=== PATIENT | female | born 1995 | race Asian ===

== ENCOUNTER → 2017-05-24 07:37 | Emergency (ER) | payer SELFPAY ==
[~2017-05-24 07:37] MED LIST: Famotidine IV* 10 MG/ML 2 ML (20 mg) IV ONE; NS 0.9% 1000 ML* 2,000 ML IV ONE; Ondansetron INJ* 2 MG/ML VIAL IV ONE
[2017-05-24 08:22] LABS: Hematocrit 43 % (35-47); Hemoglobin 14.6 g/dl (12.0-16.0); Mean Corpuscular HGB Conc 34 g/dl (31-36); Mean Corpuscular Hemoglobin 30 pg (27-31); Mean Corpuscular Volume 87 fL (80-97); Mean Platelet Volume 10 um3 (7.4-10.4); Red Blood Count 4.94 10^6/ul (4.0-5.4); Red Cell Distribution Width 12 % (10.5-15); White Blood Count 13.2 10^3/ul (3.5-10.8)
[2017-05-24 08:40] LABS: ALT 17 U/L (7-52); AST 16 U/L (13-39); Albumin 4.7 g/dL (3.2-5.2); Alkaline Phosphatase 60 U/L (34-104); Anion Gap 11 mmol/L (2-11); BUN/Creatinine Ratio 16.9 (8-20); Blood Urea Nitrogen 12 mg/dL (6-24); C Reactive Protein < 1.00 mg/L (< 5.00); CO2 Carbon Dioxide 22 mmol/L (22-32); Calcium 9.9 mg/dL (8.6-10.3); Chloride 103 mmol/L (101-111); EGFR African American 131.2 (>60); Globulin 3.2 g/dL (2-4); Glucose 132 mg/dL (70-100); Lipase 10 U/L (11.0-82.0); Potassium 3.6 mmol/L (3.5-5.0); Sodium 136 mmol/L (133-145); Total Protein 7.9 g/dL (6.4-8.9)
--- NOTE | 2017-05-24 08:59 | RAD ---
Indication: Abdominal pain. Flat and upright views of the abdomen demonstrates no free air. No dilated loops of bowel are noted. The colon is filled with stool. IMPRESSION: No free air or obstruction is noted.
[2017-05-24 09:43] LABS: Urine Bilirubin Negative (Negative); Urine Glucose Negative (Negative); Urine Nitrite Negative (Negative)
[2017-05-24 11:23] VITALS: BP 117/79
--- NOTE | 2017-05-25 07:41 | ED ---
Skip Mandel Angela, scribed for Bonilla Felix MD on 05/24/17 at 0756 . Abdominal Pain/Female - HPI Summary HPI Summary: This pt is a 22 y/o female accompanied by her significant other presenting to [facility] c/o diffuse abd pain associated with nausea, vomiting, and diarrhea since 0 yesterday. Pt notes that she ate fried rice yesterday, but states it was new. For the last 5 hours pt has been vomiting bile. There are no aggravating or alleviating factors. LMP: 1 week ago. She denies any PMHx. - History of Current Complaint Chief Complaint: EDNauseaVomitDiarrh Stated Complaint: VOMITING/ABD PAIN Hx Obtained From: Patient Hx Last Menstrual Period: nexplanon Onset/Duration: Sudden Onset, Lasting Hours, Still Present Timing: Hours Severity Currently: Severe Pain Intensity: 8 Pain Scale Used: 0-10 Numeric Location: Diffuse Radiates: No Aggravating Factor(s): Nothing Alleviating Factor(s): Nothing Associated Signs and Symptoms: Positive: Nausea, Vomiting, Diarrhea Allergies/Adverse Reactions: Allergies Allergy/AdvReac Type Severity Reaction Status Date / Time Shellfish Allergy Allergy Hives Verified 12/05/15 12:10 PMH/Surg Hx/FS Hx/Imm Hx Endocrine/Hematology History: Denies: Hx Diabetes, Hx Thyroid Disease Cardiovascular History: Denies: Hx Hypertension Respiratory History: Denies: Hx Asthma, Hx Chronic Obstructive Pulmonary Disease (COPD) GI History: Denies: Hx Ulcer Infectious Disease History: No Infectious Disease History: Denies: Hx Hepatitis, Hx Human Immunodeficiency Virus (HIV), Traveled Outside the US in Last 30 Days - Family History Known Family History: Negative: Cardiac Disease, Hypertension, Diabetes - Social History Alcohol Use: Occasionally Substance Use Type: Reports: Marijuana Substance Use Comment - Amount & Last Used: once a month Smoking Status (MU): Never Smoked Tobacco Review of Systems Negative: Fever, Chills Eyes: Negative ENT: Negative Cardiovascular: Negative Positive: Abdominal Pain, Vomiting, Diarrhea, Nausea Genitourinary: Negative Musculoskeletal: Negative Skin: Negative Neurological: Negative All Other Systems Reviewed And Are Negative: Yes Physical Exam - Summary Physical Exam Summary: VITAL SIGNS: Reviewed. GENERAL: Patient is a well-developed and nourished female who is lying comfortable in the stretcher. Patient is not in any acute respiratory distress. Dry heaving. HEAD AND FACE: Normocephalic and atraumatic. EYES: PERRLA, EOMI x 2, No injected conjunctiva. EARS: Hearing grossly intact. Ear canals and tympanic membranes are WNL. MOUTH: Oropharynx within normal limits. NECK: Supple, trachea is midline, no adenopathy, no JVD. CHEST: Symmetric, no tenderness at palpation LUNGS: Clear to auscultation bilaterally. No wheezing or crackles. CVS: RRR, S1 and S2 present, no murmurs or gallops appreciated. ABDOMEN: Soft. Diffuse abd tenderness. No signs of distention. Positive bowel sounds. No rebound no guarding, and no masses palpated. No abdominal bruit or pulsations. EXTREMITIES: FROM in all major joints, no edema, no cyanosis or clubbing. NEURO: Alert and oriented x 3. No acute neurological deficits. Speech is normal. SKIN: Dry and warm Triage Information Reviewed: Yes Vital Signs On Initial Exam: Initial Vitals Temp Pulse Resp BP Pulse Ox 97.2 F 83 16 130/71 100 05/24/17 07:40 05/24/17 07:40 05/24/17 07:40 05/24/17 07:40 05/24/17 07:40 Vital Signs Reviewed: Yes Diagnostics - Vital Signs Vital Signs Temp Pulse Resp BP Pulse Ox 05/24/17 07:40 97.2 F 83 16 130/71 100 - Laboratory Result Diagrams: 05/24/17 08:09 05/24/17 08:09 Lab Statement: Any lab studies that have been ordered have been reviewed, and results considered in the medical decision making process. - Radiology Abdomen XR Xray Interpretation: No Acute Changes - IMPRESSION: No free air or obstruction is noted. ED physician has reviewed this radiology report and agrees. Radiology Interpretation Completed By: Radiologist Re-Evaluation - Re-Evaluation First Eval Re-Evaluation Time: 10:30 Comment: I reviewed the abd XR with the pt. Abdominal Pain Fem Course/Dx - Course Course Of Treatment: This pt is a 22 y/o female accompanied by her significant other presenting to [facility] c/o diffuse abd pain associated with nausea, vomiting , and diarrhea since 2200 yesterday. Pt notes that she ate fried rice yesterday , but states it was new. For the last 5 hours pt has been vomiting bile. There are no aggravating or alleviating factors. LMP: 1 week ago. She denies any PMHx. Test results show WBC of 13.2, glucose of 132, urinalysis is negative for UTI. Initially the pt was given IV fluids, Zofran for the nausea and vomiting, and her symptoms improved. The pt had multiple re-examinations of the abdomen and has no abdominal pain. Therefore, since the symptoms have improved and pt has no abnormalities, I believe she does not need an abdominal CT at this time. Pt is tolerating PO without nausea and vomiting. She will be discharged home with follow up from her PCP. Pt is hemodynamically stable, alert and oriented x3. - Diagnoses Provider Diagnoses: Nausea, vomiting and diarrhea Discharge - Discharge Plan Condition: Stable Disposition: HOME Patient Education Materials: Acute Nausea and Vomiting (ED), Acute Diarrhea (ED ) Referrals: [facility]YSICIAN REFERRAL [Outside] Additional Instructions: Please follow up with your primary care provider. RETURN TO THE ED FOR ANY WORSENING SYMPTOMS. The documentation as recorded by the Skip montalvo Angela accurately reflects the service I personally performed and the decisions made by me, Bonilla Felix MD.
== END | disposition home or self-care (01) ==
LOC: ED 07:37
DX: R11.2 Nausea with vomiting, unspecified (principal); R19.7 Diarrhea, unspecified
CPT/HCPCS: 36415; 74020; 80053; 81003; 83690; 84702; 85025; 86140; 96374; 96375; 99282; J2405

== ENCOUNTER 2019-04-18 21:12 | Inpatient (IN) | payer BC, OTHER ==
[2019-04-18] MEDS ORDERED: NS 0.9% 1000 ML** 1,000 ML IV ONE (21:28)
--- NOTE | 2019-04-18 21:38 | ED ---
Substance Abuse/Use - HPI Summary HPI Summary: 24 year old F brought in by law enforcement to [facility] accompanied by female electronic equipment set up operator complains of taking "hand fulls" of "a couple of ibuprofen pills" so "I wouldn't wake up" some time after 16:30 today. Reports suicidal ideation since months ago. Reports superficial linear scratches on her left forearm. Also admits to drinking half a bottle of vodka starting at 16:30 today. States she was supposed to see her friends tonight but told them she wasn't going to see them anymore, and they showed up at her house and called the police. Symptoms aggravated by nothing. Symptoms alleviated by nothing. Denies tobacco use. Reports marijuana use. Denies pertinent FHx. Denies surgical hx. - History Of Current Complaint Chief Complaint: EDOverdose Stated Complaint: 941 PER [employer] Time Seen by Provider: 04/18/19 21:20 Hx Obtained From: Patient Ingestion History: Type/Name Of Drug - ibuprofen and vodka, Amount Ingested - "hand fulls" of "a couple of ibuprofen pills," half a bottle of vodka, Approximate Time Of Ingestion - 16:30 today Overdose Characteristics: Oral Aggravating Factor(s): Nothing Alleviating Factor(s): Nothing - Allergies/Home Medications Allergies/Adverse Reactions: Allergies Allergy/AdvReac Type Severity Reaction Status Date / Time iodine Allergy Unknown Verified 04/18/19 21:19 Reaction Details shellfish derived Allergy Hives Verified 04/18/19 21:13 Home Medications: Home Medications Norgestimate-Ethinyl Estradiol [Tri-Sprintec 0.18/0.215/0.25 mg-35 Mcg] 1 tab PO DAILY 04/18/19 [History Confirmed 04/18/19] PMH/Surg Hx/FS Hx/Imm Hx Endocrine/Hematology History: Denies: Hx Diabetes, Hx Thyroid Disease Cardiovascular History: Denies: Hx Hypertension Respiratory History: Denies: Hx Asthma, Hx Chronic Obstructive Pulmonary Disease (COPD) GI History: Denies: Hx Ulcer - Surgical History Surgery Procedure, Year, and Place: None Infectious Disease History: No Infectious Disease History: Denies: Hx Hepatitis, Hx Human Immunodeficiency Virus (HIV), Traveled Outside the US in Last 30 Days - Family History Known Family History: Negative: Cardiac Disease, Hypertension, Diabetes - Social History Alcohol Use: Occasionally Hx Substance Use: Yes Substance Use Type: Reports: Marijuana Substance Use Comment - Amount & Last Used: once a month Hx Tobacco Use: No Smoking Status (MU): Never Smoked Tobacco Review of Systems - ROS Summary Review of Systems Summary: Home Medications Medication Instructions Recorded Confirmed Type Albuterol HFA INHALER* [Ventolin 1 - 2 puff INH Q6H PRN #1 mdi 12/05/15 Rx HFA Inhaler*] Positive: Other - superficial linear scratches on her left forearm Positive: Other - taking "hand fulls" of "a couple of ibuprofen pills" so "I wouldn't wake up," suicidal ideation, ETOH intoxication All Other Systems Reviewed And Are Negative: Yes Physical Exam - Summary Physical Exam Summary: General: Well-developed, Well-nourished FEMALE. No acute distress. HEENT: Normocephalic, Atraumatic. Eyes: Conjuctiva normal, PERRL. Ears: TMs within normal limits. Nares: (-) discharge, (-) erythema. Oropharynx: Clear, mucous membranes moist, (-) exudates. Neck: Soft, FROM, (-) lymphadenopathy, (-) thyromegaly, (-) JVD. Cardiovascular: Normal sinus rhythm, (-) murmur. Lungs: Clear to auscultation bilaterally (-) wheezes, (-) rales, (-) rhonchi. Abdomen: Soft, non-tender, non-distended, (-) organomegaly, normal bowel sounds. Back: (-) CVA tenderness Extremities: No edema. Skin: Warm, dry, (-) rash. She has superficial linear scratches of the left forearm flat affect Neuro: Alert and oriented x3, no focal deficits. Psychiatric: Flat affect Triage Information Reviewed: Yes Vital Signs On Initial Exam: Initial Vitals Temp Pulse Resp BP Pulse Ox 98.7 F 103 16 141/96 98 04/18/19 21:12 04/18/19 21:12 04/18/19 21:12 04/18/19 21:12 04/18/19 21:12 Vital Signs Reviewed: Yes Procedures - Sedation Patient Received Moderate/Deep Sedation with Procedure: No Diagnostics - Vital Signs Vital Signs Temp Pulse Resp BP Pulse Ox 04/18/19 21:12 98.7 F 103 16 141/96 98 - Laboratory Result Diagrams: 04/18/19 21:46 04/18/19 21:46 Lab Statement: Any lab studies that have been ordered have been reviewed, and results considered in the medical decision making process. - EKG 2151 Cardiac Rate: NL - 93 BPM EKG Rhythm: Sinus Rhythm Summary of EKG Findings: EKG at 21:52 reveals normal sinus rhythm with rate of 93 BPM, no acute changes, no ischemic changes. This EKG was reviewed and interpreted by Dr. Astorga. Re-Evaluation - Re-Evaluation First Eval Re-Evaluation Time: 23:04 Comment: patient is medically cleared for MHE Course/Dx - Course Course Of Treatment: 24 year old F complains of taking "hand fulls" of "a couple of ibuprofen pills" so "I wouldn't wake up" and drinking half a bottle of vodka at 16:30 today. Reports suicidal ideation since months ago. Reports superficial linear scratches on her left forearm. Upon exam, the patient has superficial linear scratches on her left forearm and flat affect. Bloodwork results with no significant abnormalities except for RBC 5.08, potassium 3.2, glucose 129. Urinalysis results with no significant abnormalities except for trace ketones, leukocyte esterase 1+, WBC 1+, RBC 1+, squamous epithelial cells , bacteria 1+ and hyaline casts. Toxicology results with no significant abnormalities except for positive for cannabinoids, serum alcohol 46. EKG at 21 :52 reveals normal sinus rhythm with rate of 93 BPM, no acute changes, no ischemic changes. In the ED course, the patient was given normal saline fluids 1 L IV. She was also given potassium chloride 40 mg PO. Mental health tetryl screen operator , Greg CARRILLO, reviewed case with Dr. Hampton, psychiatry, and they recommend admission. The patient will be admitted. - Diagnoses Provider Diagnoses: Major depressive disorder - Physician Notifications Discussed Care Of Patient With: Ankit Hampton Time Discussed With Above Provider: 01:00 Instructed by Provider To: Other - Dr. Hampton, psychiatry, recommends admission. Discharge ED - Sign-Out/Discharge Documenting (check all that apply): Patient Departure - Admit - Discharge Plan Condition: Stable Disposition: [facility]CHIATRIC FACILITY-[facility] - Billing Disposition and Condition Condition: STABLE Disposition: Psychiatric Facility [facility] - Attestation Statements Document Initiated by Scribe: Yes Documenting Scribe: Aida Piedra Provider For Whom Scribe is Documenting (Include Credential): Dacia Astorga MD Scribe Attestation: I, Aida Piedra, scribed for Dacia Astorga MD on 04/19/19 at 0341. Scribe Documentation Reviewed: Yes Provider Attestation: The documentation as recorded by the scribe, Aida Piedra accurately reflects the service I personally performed and the decisions made by me, Dacia Astorga MD Status of Scribe Document: Viewed
[2019-04-18 21:50] LABS: Urine Appearance Cloudy; Urine Bacteria 1+ (Absent); Urine Bilirubin Negative (Negative); Urine Blood Negative (Negative); Urine Color Yellow; Urine Glucose Negative (Negative); Urine Ketones Trace (Negative); Urine Nitrite Negative (Negative); Urine Protein Negative (Negative); Urine Red Blood Cell 1+(3-5/hpf) (Absent); Urine Specific Gravity 1.013 (1.010-1.030); Urine Squamous Epithelial Cell Present (Absent); Urine Urobilinogen Negative (Negative); Urine White Blood Cell 1+(6-10/hpf) (Absent)
[2019-04-18 21:53] LABS: ABS Basophils 0.1 10^3/ul (0-0.2); ABS Eosinophils 0.1 10^3/ul (0-0.6); ABS Lymphocytes 2.5 10^3/ul (1.0-4.8); ABS Monocytes 0.5 10^3/ul (0-0.8); Eosinophil % 0.9 %; Hematocrit 45 % (35-47); Hemoglobin 15.4 g/dL (12.0-16.0); Mean Corpuscular HGB Conc 35 g/dL (31-36); Mean Corpuscular Hemoglobin 30 pg (27-31); Mean Corpuscular Volume 88 fL (80-97); Mean Platelet Volume 9.8 fL (7.4-10.4); Platelet Count 212 10^3/uL (150-450); Red Blood Count 5.08 10^6 /uL (3.70-4.87); Red Cell Distribution Width 13 % (10-15); White Blood Count 10.1 10^3/uL (3.5-10.8)
[2019-04-18 22:00] LABS: Urine Benzodiazepine Screen None Detected (None Detect); Urine Opiates Screen None Detected (None Detect)
[2019-04-18 22:09] LABS: ALT 14 U/L (7-52); AST 15 U/L (13-39); Albumin 4.8 g/dL (3.2-5.2); Albumin/Globulin Ratio 1.5 (1-3); Alkaline Phosphatase 57 U/L (34-104); Anion Gap 9 mmol/L (2-11); BUN/Creatinine Ratio 12.2 (8-20); Blood Urea Nitrogen 10 mg/dL (6-24); CO2 Carbon Dioxide 25 mmol/L (22-32); Calcium 9.3 mg/dL (8.6-10.3); Chloride 104 mmol/L (101-111); EGFR African American 102.8 (>60); EGFR Non-African American 84.9 (>60); Globulin 3.2 g/dL (2-4); Glucose 129 mg/dL (70-100); Potassium 3.2 mmol/L (3.5-5.0); Sodium 138 mmol/L (135-145)
[2019-04-18 22:14] LABS: Acetaminophen < 15 mcg/mL; Alcohol 46 mg/dL (<10); Salicylate < 2.50 mg/dL (<30)
[2019-04-18 22:16] LABS: HCG Pregnancy < 0.60 mIU/mL
[2019-04-18 22:30] LABS: TSH (Thyroid Stimulating Horm) 3.26 mcIU/mL (0.34-5.60)
[2019-04-18] MEDS ORDERED: Potassium Chlor TAB* 20 MEQ TAB.ER PO ONE (22:58)
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
[2019-04-21 08:59] LABS: HDL Cholesterol 59.4 mg/dL
[2019-04-22 09:52] VITALS: BP 134/71
--- NOTE | 2019-05-01 02:32 | DS ---
DISCHARGE SUMMARY: DATE OF ADMISSION: 04/19/19 DATE OF DISCHARGE: 04/22/19 DISCHARGE DIAGNOSES: As follows: Fortuna I: Generalized anxiety disorder; rule out alcohol use disorder. Fortuna II: Deferred. CONDITION AT THE TIME OF DISCHARGE: Improved. The patient has steadfastly denied suicidal ideations throughout her stay here at the hospital. She has been safe on all checks. Ms. Jackson has been participatory in all groups and uniprogramming. Her affect is considerably brighter than what was observed upon admission. At this time, we see no further rationalization for involuntary psychiatric treatment given the fact that the patient is willing to follow up with outpatient services in the community. We have spoken with her fiance, who is agreeable with the discharge plan. MENTAL STATUS EXAM: At the time of discharge, the patient is a slightly overweight Italian female, who is clean and well dressed. She is wearing eye glasses. She is calm and cooperative. Speech has a normal rate, tone, and volume. Mood is euthymic with full affect. Thought process is linear and goal directed. Thought content is significant for her desire to be discharged from the hospital. She is denying suicidal or homicidal ideations. She denies auditory or visual hallucinations. Insight and judgement are fair given her willingness to followup with outpatient services. Cognitively, she is awake and alert with what would appeared to be an average intellect. DISCHARGE INSTRUCTIONS TO THE PATIENT: Part A: Discharge medications: 1. She is on norgestimate-ethinyl estradiol 1 tablet p.o. daily. 2. She is on albuterol 1 to 2 puffs inhaled every 6 hours as needed for wheezing. Part B: Diet is regular. Part C: Activities as tolerated. The patient is a nonsmoker. There are no laboratory or diagnostic studies pending at the time of discharge. Part D: Followup care: The patient has a followup appointment on Monday, at 10:45 a.m. at [facility]. Part E: Substance abuse followup is nonapplicable. Part F: Disposition: The patient is returning to her own home. HOSPITAL COURSE - PART A: Reason for admission: The patient is a 24-year-old engaged Italian-[place] female with history of anxiety and depression, who was brought to the hospital via ambulance after suicidal overdose on approximately one half bottle of vodka as well as an unspecified amount of qboo-hef-armfoni ibuprofen. The patient indicates that she was having a difficult week, 2 friends of hers were visiting from [place]. She felt overwhelmed, started drinking alcohol in anticipation of their arrival. At some point, she lost track of what she was doing and consumed an entire bottle of bpfp-trb-qymiedr ibuprofen. She is uncertain of the amount that she took. Her friends, Yessica and Meg, were knocking on the door for quite some time until finally that woke her up. The patient states that she found herself on the bathroom floor, realized what she had done, then went to the door, let her friends in and told them what had happened. They were extremely concerned for her and called 911, having her brought to the hospital. I strongly advocated for her admission. The patient does have multiple psychosocial stressors. She indicates that her fiance started a new job 2 weeks ago and he has been working long hours and they have been arguing a lot. Earlier in the week, she lost both her car keys and her wallet and then a day or 2 later found that her computer work had crashed and had lost all the work she had completed on that system. A chronic stressor is that her father disowned her 2 years ago due to her dating a white male and she still is quite upset about this. Symptomatically, she denies depressed mood, although she does endorse some guilt and poor energy, most of which she is describing as chronic anxiety, worrying, feelings of tension, and occasional anger. She does deny psychotic or manic symptoms. Currently, she is denying suicidal ideations and is strongly advocating to be allowed to go home. We checked with her fiance whether there would be someone to stay with her over the weekend and he denied this stating that he was obligated to work. HOSPITAL COURSE - PART B: Psychiatric treatment rendered: The patient was admitted to the adult behavioral health unit and placed on q.15 minute checks for her own safety. These were later downgraded to q.30 minute checks as she continued to endorse her own lack of suicidal ideations. The patient declined any medications stating that her preference was to receive conservative treatment with groups and psychotherapy. This was accommodated for her and she was an active participant in milieu programming. Over the weekend, she continued to endorse her own safety. She was agreeable to an outpatient followup at [facility][1] and appeared to be adequately concerned and remorseful for her suicidal overdose. The patient was feeling better on 04/22/19, and it was determined that she no longer met criteria for involuntary hospitalization. Ms. Jackson has been discharged to the community and we see no barriers to her receiving definitive treatment in a less restrictive setting. [id number]/[facility] #: [id number] MTDD
== END 2019-04-22 12:15 | disposition home or self-care (01) | DRG 756 ==
LOC: ED 21:12 → BSU 04-19 02:24
PROVIDERS: ADMIT Psychiatry & Neurology Psychiatry; ATTEND Psychiatry & Neurology Psychiatry
DX: F41.1 Generalized anxiety disorder (principal); R45.851 Suicidal ideations; T39.312A Poisoning by propionic acid derivatives, intentional self-harm, initial encounter; T51.0X1A Toxic effect of ethanol, accidental (unintentional), initial encounter; Y92.039 Unspecified place in apartment as the place of occurrence of the external cause
CPT/HCPCS: 36415; 80053; 80061; 80307; 80320; 80329; 81003; 81015; 83036; 83605; 84443; 84702; 85025; 87086; 93005; 99222; 99238; 99284; A9270-GY; G0480

== ENCOUNTER 2020-08-18 07:19 | Observation (INO) ==
[2020-08-18] MEDS ORDERED: Ondansetron 4 mg VIAL 2 MG/ML 2 ml VIAL IV ONE (07:30)
[2020-08-18] MEDS ORDERED: NS 0.9% 1000 ml BAG 1,000 ML IV ONE (07:30)
[2020-08-18] MEDS ORDERED: Famotidine IV 10 MG/ML 2 ml VIAL (20 mg) IV SLOW PU ONE (07:53)
[2020-08-18 08:32] LABS: ABS Lymphocytes 1.2 10^3/ul (1.0-4.8); ABS Monocytes 0.6 10^3/ul (0-0.8); ABS Neutrophils 14.2 10^3/ul (1.5-7.7); Hematocrit 44 % (35-47); Hemoglobin 14.3 g/dL (12.0-16.0); Lymphocyte % 7.7 %; Mean Corpuscular HGB Conc 33 g/dL (31-36); Mean Corpuscular Hemoglobin 30 pg (27-31); Mean Corpuscular Volume 90 fL (80-97); Mean Platelet Volume 10.1 fL (7.4-10.4); Platelet Count 249 10^3/uL (150-450); Red Blood Count 4.84 10^6 /uL (3.70-4.87); Red Cell Distribution Width 12 % (10-15); White Blood Count 16.1 10^3/uL (3.5-10.8)
[2020-08-18 08:51] LABS: Anion Gap 11 mmol/L (2-11); CO2 Carbon Dioxide 24 mmol/L (22-32); Calcium 9.9 mg/dL (8.6-10.3); Chloride 106 mmol/L (101-111); Potassium 3.3 mmol/L (3.5-5.0); Sodium 141 mmol/L (135-145)
[2020-08-18 08:57] LABS: ALT 16 U/L (7-52); AST 15 U/L (13-39); Albumin/Globulin Ratio 1.6 (1-3); Alkaline Phosphatase 62 U/L (34-104); BUN/Creatinine Ratio 10.8 (8-20); Blood Urea Nitrogen 9 mg/dL (6-24); C Reactive Protein < 1.00 mg/L (<8.01); EGFR African American 100.5 (>60); EGFR Non-African American 83.1 (>60); Globulin 3.2 g/dL (2-4); Glucose 141 mg/dL (70-100); Total Protein 8.2 g/dL (6.4-8.9)
[2020-08-18] MEDS ORDERED: Morphine 4 MG/ML VIAL (1 ml) IV ONE (09:00)
[2020-08-18 09:02] LABS: HCG Pregnancy < 0.60 mIU/mL
[2020-08-18] MEDS ORDERED: Iohexol 300 (CONTRAST) 10 ML SDV IV ONE (10:29)
[2020-08-18 10:31] LABS: Lipase < 10 U/L (11.0-82.0)
[2020-08-18] MEDS ORDERED: LORazepam 2 mg VIAL 1 ml IV PUSH ONE (11:51)
[2020-08-18] MEDS ORDERED: Lorazepam PYXIS KEY PRN (11:51)
[2020-08-18 13:10] LABS: Urine Appearance Clear; Urine Bilirubin Negative (Negative); Urine Blood Negative (Negative); Urine Color Yellow; Urine Glucose Negative (Negative); Urine Ketones 2+ (Negative); Urine Nitrite Negative (Negative); Urine Protein Negative (Negative); Urine Specific Gravity 1.046 (1.010-1.030); Urine Urobilinogen Negative (Negative)
[2020-08-18] MEDS ORDERED: Al Hydrox/Mg Hydrox/Simet LIQ 30 ML UDC PO ONE (13:32)
[2020-08-18] MEDS ORDERED: Lactated Ringers 1000 ml BAG 1,000 ML IV SCH ×3 (17:00→18:28)
[2020-08-18] MEDS: Ondansetron 4 mg VIAL 2 MG/ML 2 ml VIAL IV PRN (17:37)
[2020-08-18] MEDS ORDERED: Potassium Chlor 20 meq TAB.ER PO ONE (17:45)
[2020-08-18 21:15] LABS: TSH Ultra Thyroid Stim Horm 0.61 mcIU/mL (0.34-5.60)
[2020-08-18 21:41] LABS: Magnesium 1.9 mg/dL (1.9-2.7)
[2020-08-19] MEDS: Ondansetron 4 mg VIAL 2 MG/ML 2 ml VIAL IV PRN (00:30)
[2020-08-19] MEDS: Prochlorperazine 5 mg/ml 2 ml VIAL (10 mg) IV PRN ×2 (03:27→09:46)
[2020-08-19 06:40] LABS: Calcium 8.6 mg/dL (8.6-10.3); Magnesium 2.1 mg/dL (1.9-2.7); Potassium 3.5 mmol/L (3.5-5.0)
[2020-08-19 06:46] LABS: BUN/Creatinine Ratio 14.3 (8-20); EGFR African American 122.4 (>60); EGFR Non-African American 101.1 (>60)
[2020-08-19 06:58] LABS: Hematocrit 40 % (35-47); Hemoglobin 12.9 g/dL (12.0-16.0); Mean Corpuscular HGB Conc 32 g/dL (31-36); Mean Corpuscular Hemoglobin 30 pg (27-31); Mean Corpuscular Volume 93 fL (80-97); Mean Platelet Volume 10.1 fL (7.4-10.4); Platelet Count 213 10^3/uL (150-450); Red Blood Count 4.27 10^6 /uL (3.70-4.87); Red Cell Distribution Width 13 % (10-15); White Blood Count 15.7 10^3/uL (3.5-10.8)
[2020-08-19] MEDS ORDERED: Lactated Ringers 1000 ml BAG 1,000 ML IV SCH ×2 (07:00→13:07)
[2020-08-19] MEDS ORDERED: Morphine 2 MG/ML SYRINGE IV PRN (09:50)
[2020-08-19] MEDS ORDERED: Famotidine IV 10 MG/ML 2 ml VIAL (20 mg) IV SLOW PU PRN (09:50)
[2020-08-19 15:33] VITALS: BP 121/59
== END 2020-08-19 18:20 | disposition home or self-care (01) ==
LOC: ED 07:19 → MED 07:19
PROVIDERS: ADMIT Internal Medicine; ATTEND Internal Medicine

== ENCOUNTER 2020-08-22 06:45 | Observation (INO) ==
[2020-08-22] MEDS ORDERED: NS 0.9% 1000 ml BAG 1,000 ML IV ONE ×2 (06:57→06:58)
[2020-08-22] MEDS ORDERED: Famotidine IV 10 MG/ML 2 ml VIAL (20 mg) IV SLOW PU ONE (07:09)
[2020-08-22] MEDS ORDERED: Metoclopramide 5 MG/ML VIAL (10 mg) IV SLOW PU ONE (07:10)
[2020-08-22] MEDS ORDERED: Haloperidol 5 mg/ml SDV IV/IM 5 MG/ML AMP IV SLOW PU ONE (07:47)
[2020-08-22 07:58] LABS: ABS Basophils 0.1 10^3/ul (0-0.2); ABS Lymphocytes 1.7 10^3/ul (1.0-4.8); ABS Monocytes 0.7 10^3/ul (0-0.8); Eosinophil % 0.2 %; Hematocrit 45 % (35-47); Hemoglobin 15.2 g/dL (12.0-16.0); Lymphocyte % 17.7 %; Mean Corpuscular HGB Conc 34 g/dL (31-36); Mean Corpuscular Hemoglobin 30 pg (27-31); Mean Corpuscular Volume 90 fL (80-97); Mean Platelet Volume 10.1 fL (7.4-10.4); Platelet Count 241 10^3/uL (150-450); Red Blood Count 5.06 10^6 /uL (3.70-4.87); Red Cell Distribution Width 12 % (10-15); White Blood Count 9.5 10^3/uL (3.5-10.8)
[2020-08-22 08:12] LABS: ALT 12 U/L (7-52); AST 13 U/L (13-39); Albumin 4.9 g/dL (3.2-5.2); Albumin/Globulin Ratio 1.6 (1-3); Alkaline Phosphatase 62 U/L (34-104); Anion Gap 12 mmol/L (2-11); BUN/Creatinine Ratio 18.3 (8-20); Blood Urea Nitrogen 15 mg/dL (6-24); CO2 Carbon Dioxide 23 mmol/L (22-32); Calcium 9.3 mg/dL (8.6-10.3); Chloride 101 mmol/L (101-111); EGFR Non-African American 84.3 (>60); Globulin 3.1 g/dL (2-4); Glucose 96 mg/dL (70-100); Lipase 12 U/L (11.0-82.0); Magnesium 2.4 mg/dL (1.9-2.7); Potassium 3.1 mmol/L (3.5-5.0); Sodium 136 mmol/L (135-145)
[2020-08-22] MEDS ORDERED: Morphine 4 MG/ML VIAL (1 ml) IV ONE ×2 (08:33→09:41)
[2020-08-22] MEDS: KCL 20 MEQ/100 ML IVPREMIX 20 MEQ/100 ML BAG IV SCH ×2 (09:51→13:38)
[2020-08-22 10:19] LABS: Urine Appearance Cloudy; Urine Bilirubin Negative (Negative); Urine Blood Negative (Negative); Urine Color Straw; Urine Glucose Negative (Negative); Urine Ketones 2+ (Negative); Urine Nitrite Negative (Negative); Urine Protein Negative (Negative); Urine Specific Gravity 1.009 (1.010-1.030); Urine Urobilinogen Negative (Negative)
[2020-08-22 10:20] LABS: Urine Bacteria Absent (Absent); Urine Red Blood Cell Trace(0-2/hpf) (Absent); Urine Squamous Epithelial Cell Present (Absent); Urine White Blood Cell Trace(0-5/hpf) (Absent)
[2020-08-22] MEDS ORDERED: Ondansetron 4 mg VIAL 2 MG/ML 2 ml VIAL IV PRN (11:09)
[2020-08-22] MEDS ORDERED: ETONOGESTREL 68 MG SUBCUT ONE (13:15)
[2020-08-22] MEDS ORDERED: Albuterol HFA INHALER 8 gm MDI INH PRN (14:00)
[2020-08-22] MEDS: NS 0.9% w/ 20 Meq KCL 1000 ml 1,000 ML IV SCH (16:22)
[2020-08-22] MEDS: Famotidine IV 10 MG/ML 2 ml VIAL (20 mg) IV SLOW PU SCH (20:57)
[2020-08-23] MEDS: NS 0.9% w/ 20 Meq KCL 1000 ml 1,000 ML IV SCH (03:10)
[2020-08-23 05:09] LABS: ABS Basophils 0.1 10^3/ul (0-0.2); ABS Eosinophils 0.1 10^3/ul (0-0.6); ABS Lymphocytes 2.5 10^3/ul (1.0-4.8); ABS Monocytes 0.8 10^3/ul (0-0.8); ABS Neutrophils 6.1 10^3/ul (1.5-7.7); Eosinophil % 0.8 %; Hematocrit 37 % (35-47); Hemoglobin 12.4 g/dL (12.0-16.0); Lymphocyte % 26.6 %; Mean Corpuscular HGB Conc 34 g/dL (31-36); Mean Corpuscular Hemoglobin 30 pg (27-31); Mean Corpuscular Volume 90 fL (80-97); Mean Platelet Volume 10.4 fL (7.4-10.4); Platelet Count 210 10^3/uL (150-450); Red Cell Distribution Width 12 % (10-15); White Blood Count 9.6 10^3/uL (3.5-10.8)
[2020-08-23 05:26] LABS: BUN/Creatinine Ratio 12.2 (8-20); Calcium 8.2 mg/dL (8.6-10.3); EGFR African American 114.8 (>60); EGFR Non-African American 94.9 (>60); Potassium 3.5 mmol/L (3.5-5.0)
[2020-08-23] MEDS: Famotidine IV 10 MG/ML 2 ml VIAL (20 mg) IV SLOW PU SCH (07:38)
[2020-08-23 08:59] LABS: Alcohol, S < 10 mg/dL (<10)
[2020-08-23 11:25] VITALS: BP 118/74
[2020-08-23 13:18] LABS: Hepatitis B Surface Antigen Nonreactive (Nonreactive)
[2020-08-23 13:23] LABS: Hepatitis A Ab IgM Negative (Negative)
[2020-08-23 13:35] LABS: Hepatitis C Antibody Negative (Negative)
[2020-08-23 16:19] LABS: Hepatitis B Core IgM Nonreactive (Nonreactive)
[2020-08-26 23:40] LABS: Calprotectin <15.6 mcg/g
== END 2020-08-23 13:39 | disposition home or self-care (01) ==
LOC: MEDTELE 06:45 → ED 06:45
PROVIDERS: ADMIT Internal Medicine; ATTEND Internal Medicine